=== PATIENT | male | born 1995 | race African-American/Black ===

== ENCOUNTER 2016-08-14 02:42 | Emergency (ER) | payer OTHER ==
--- NOTE | 2016-08-14 03:29 | ED Physician Chart ---
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 THE LACERATON WAS SUSTAINED AT 1200 HR NOON . HE STATES THAT HIS D.T. WAS UP TO DATE. Allergies:: Allergies Allergy/AdvReac Type Severity Reaction Status Date / Time No Known Allergies Allergy Verified 08/14/16 03:01 Vitals:: Vital Signs - 8 hr 08/14/16 03:00 Temp 98.1 F HR 62 RR 16 BP 119/87 O2 Sat % 99 Historian:: Patient Review:: Nurse's Note Reviewed Review of Systems - Review of Systems Skin: Other (1 CM LACERATION OF THE RIGHT EYEBROW AREA.) Past Medical History - Past Medical History Obtainable: Yes Past Medical History: No significant medical hx Family History: None Social History: Non Smoker, No Alcohol, No Drug Use Surgical History: None Psychiatricy History: None Medication: Reviewed Family Medical History - Family Member Mother History Unknown: Yes Physical Exam - Physical Examination General/Constitutional: Awake, Well-developed, well-nourished, Alert, No distress, GCS 15, Non-toxic appearing, Ambulatory Head: Atraumatic Eyes: Lids, conjuctiva normal, PERRL, EOMI Skin: Nl inspection, No rash, No skin lesions, No ecchymosis, Well hydrated, No lymphadenopathy Other Skin comments:: THERE IS A 1 CM LACERATION OVER THE LEFT EYEBROW AREA. THE WOUND IS CLOSE AND NOT BLEEDING. ENMT: External ears, nose nl, Nasal exam nl, Lips, teeth, gums nl Neck: Nontender, Full ROM w/o pain, No JVD, No nuchal rigidity, No bruit, No mass, No stridor Respiratory: Nl effort/Exclusion, Clear to Auscultation, No Wheeze/Rhonchi/Rales Cardio Vascular: RRR, No murmur, gallop, rubs, NL S1 S2 GI: No tenderness/rebounding/guarding, No organomegaly, No hernia, Normal BS's, Nondistended, No mass/bruits, No McBurney tenderness : No CVA tenderness Extremities: No tenderness or effusion, Full ROM, normal strength in all extremities, No edema, Normal digits & nails Neuro/Psych: Alert/oriented, DTR's symmetric, Normal sensory exam, Normal motor strength, Judgement/insight normal, Mood normal, Normal gait, No focal deficits Misc: normal gait, Normal back, No paraspinal tenderness ED Septic Shock - . Is Septic Shock (SBP<90, OR Lactate>4 mmol\L) present?: No - <6hrs of presentation: Vital Signs: Vital Signs - 8 hr 08/14/16 03:00 Temp 98.1 F HR 62 RR 16 BP 119/87 O2 Sat % 99 Reassessment (Disposition) - Reassessment Reassessment Condition:: Unchanged - Diagnosis Diagnosis:: LACERATION OF THE RIGHT EYEBROW AREA. - Aftercare/Follow up Instructions Aftercare/Follow-Up Instructions:: Counseled pt regarding lab results/diagnosis & need follow up, Refer to Discharge Instructions, Counseled pt & family regarding lab results/diagnosis & need follow up Notes:: THE PATIENT DID NOT NEED SUTURES. THE STRI-STRIP WERE USED TO KEEP WOUND CLOSE. - Patient Disposition Discharge/Transfer:: Home Condition at Disposition:: Unchanged
== END 2016-08-14 03:40 | disposition home or self-care (01) ==
LOC: ER 02:42
DX: S01.111A Laceration without foreign body of right eyelid and periocular area, initial encounter (principal); X58.XXXA Exposure to other specified factors, initial encounter; Y93.67 Activity, basketball; Y92.89 Other specified places as the place of occurrence of the external cause; Y99.8 Other external cause status